=== PATIENT | female | born 1975 | race Caucasian/White ===

== ENCOUNTER 2021-07-06 11:30 | Day surgery (SDC) | payer OTHER, SELFPAY ==
--- NOTE | 2021-07-03 16:24 | PCM.HP.BLA ---
History and Physical Date of Admission: 07/06/21 Pre-Op History and Physical ? HPI: The patient is a 45 year old female presenting for discussion regarding surgical intervention for abnormal uterine bleeding, submucosal fibroid, contraceptive management. Patient would like to proceed with surgical intervention at this time. Patient states the bleeding is so irregular. She has Mirena IUD in place at this time also has a known submucosal fibroid under 3 cm. ? For pre-operative visit. She is scheduled for Hysteroscopy D&C and Myomectomy, yue ablation and Mirena IUd insertion , for abnormal uterine bleeding, submucosal fibroid, contraceptive management. on 07/06/21. Procedure discussed along with risks, benefits and complications. Other alternatives discussed for management. Consent form signed? Yes. ? ? PAST MEDICAL HISTORY PAST MEDICAL HISTORY Diagnosis Date ? Allergic rhinitis, cause unspecified ? ? Dysmetabolic syndrome X ? ? Polycystic ovaries ? ? ? PAST SURGICAL HISTORY PAST SURGICAL HISTORY Procedure Laterality Date ? LAPS SURG CHOLECYSTECTOMY W/CHOLANGIOGRAPHY ? 12/11/05 ? PAST SURGICAL HISTORY OF ? ? ? NOSE SURGERY ? ? ? CURRENT MEDICATIONS Current Outpatient Medications Medication Sig Dispense Refill ? levonorgestrel (MIRENA) 20 mcg/24 hours (7 yrs) 52 mg IUD 1 Each by INTRAUTERINE route one time only. ? ? ? Levonorgestrel-Ethinyl Estrad (AVIANE) 0.1mg - 20mcg per tablet Take 1 tablet by mouth once daily. (Patient not taking: Reported on 05/16/2021 ) 1 Package 0 ? No current facility-administered medications for this visit. ? ? ALLERGIES: Dust and No Drug Or Latex Allergy [Other] ? PERSONAL HISTORY: SOCIAL HISTORY Social History ? Tobacco Use ? Smoking status: Never Smoker ? Smokeless tobacco: Never Used Vaping Use ? Vaping Use: Never used Substance Use Topics ? Alcohol use: No ? Drug use: No ? FAMILY HISTORY: FAMILY HISTORY FAMILY HISTORY Problem Relation Age of Onset ? No Known Problems Mother ? ? Heart Father ? ? Valve disease, CABG ? Hyperlipidemia Father ? ? No Known Problems Sister ? ? Hyperlipidemia Sister ? ? No Known Problems Brother ? ? No Known Problems Maternal Grandmother ? ? Heart Maternal Grandfather ? ? Heart Paternal Grandmother ? ? Alcohol/Drug Paternal Grandfather ? ? No Known Problems Daughter ? ? No Known Problems Son ? ? ? REVIEW OF SYMPTOMS: negative except as noted above PHYSICAL EXAMINATION: ? VITALS: Blood pressure 134/84, height 5' 2 (1.575 m), weight 205 lb (93 kg), last menstrual period 11/20/2012. ? GENERAL: The patient is well nourished, well hydrated in no acute distress. , The patient is oriented to time, place, and person. NECK: full range of motion . LUNGS: Clear to auscultation bilaterally. no wheezes, rhonchi or rales HEART: Regular rate and rhythm, Normal heart sounds and No murmurs or gallops GENITALIA: Normal external genitalia, Urethral meatus normal, Bladder nontender, normal vagina and normal vaginal tone, normal cervix, normal uterus, size and consistency, normal adnexa without masses or tenderness and perineum WNL ? IMPRESSION: AUB, submucosal fibroid, contraceptive mgmt ? PLAN: Removal of Mirena IUD, hysteroscopy, D&C, Yue ablation, Mirena IUD insertion. ? Pt has been counseled on risks/benefits and alternatives of surgery including but not limited to anesthesia, bleeding, infection, uterine perforation with subsequent injury to pelvic structures including bowel, bladder, ureters and vessels. Pt wishes to proceed with surgery at this time. Reviewed with the patient that if the cavity is breached on myomectomy that we would not be able to proceed with the Yue ablation. Patient understands this. Patient has shared that she fails this that hysterectomy would be recommended. ? Pre op and post op instructions reviewed ? ? I have reviewed and updated past medical and surgical history, medications and allergies Letty Couch MD
[2021-07-06] VITALS (8 sets, daily range): BP systolic 102–136; BP diastolic 66–80; PULSE 64–81; RESP 16–18; TEMP 36.3–36.9; O2SAT 97–100
[2021-07-06] MEDS: Lactated Ringers 1,000 ML 150 ML IV (11:45)
[2021-07-06 12:11] LABS: Internal QC Validated? YES +Cl - CLEAR BKGD; Pregnancy, Urine Negative Negative
[2021-07-06 12:21] LABS: Absolute Neutrophil Count 2.7 X10^3/uL (2.0-7.7); Basophil# 0.04 X10^3/uL; Basophil% 0.7 % (0-1); Eosinophil# 0.11 X10^3/uL; Eosinophils% 1.9 % (0-5); Hematocrit 36.7 % (37-47); Hemoglobin 12.6 g/dL (12.0-15.0); Lymphocyte % 41.9 % (19-41); Mean Corp Hgb Conc 34.3 g/dL (32-36); Mean Corpuscular Hgb 32.1 pg (27.0-32.0); Mean Corpuscular Volume 93.4 fL (81-99); Mean Platelet Vol. 9.6 fl (6.2-12.0); Monocyte# 0.52 X10^3/uL; Monocyte% 9.1 % (0-10); NRBC Flagged by Analyzer 0 % (0-5); Neutrophil # 2.65 X10^3/uL (2.7-7.7); Neutrophil % 46.2 % (47-70); Platelet Count 257 K/mm3 (150-450); RBC Distribution Width SD 41.7 fl (35.1-43.9); Red Blood Count 3.93 M/mm3 (4.2-5.4); White Blood Count 5.7 K/mm3 (4.4-11.0)
--- NOTE | 2021-07-06 13:16 | PCM.OPRPT ---
Problems Associated Problem List Diagnoses (1) Abnormal uterine bleeding (AUB): (2) Fibroid uterus: Report of Operation Date of Procedure: 07/06/21 Pre-Operative Diagnosis: Fibroid uterus, aub Post-Operative Diagnosis: same Surgery/Procedure Performed:: Mirena IUD remova, Hysteroscopy, D&C, Myomectomy with symphion, Yue Ablation, Mirena IUD insertion Description of Surgical Findings:: Anterior submucosal fibroid. Removed to base with symphion. Myometrium not breached. Surgeon: Letty Mendoza Type of Anesthesia: MAC Specimen's removed: endometrial curettings, submucosal fibroid Drains: none Estimated Blood Loss (mL): 10 Fluids Replaced: 600 Description of Procedure: After informed consent was obtained patient taken to the operating room she is placed in supine position she is given anesthesia simply self insert she is prepped draped normal sterile fashion. Bladder was drained prior to the start of the procedure. At this time the weighted speculum was placed the posterior fornix of the vagina then a single-tooth tenaculum was used to grasp the anterior lip of the cervix. IUD strings seen, MIRENA IUD REMOVED. At this time the uterus was sounded to approximately 9cm the endocervical canal sounded to 3.5 cm. Next cervix was dilated in incremental fashion. Once adequate dilatation was achieved the hysteroscope was inserted using normal saline as distention medium. On hysteroscopy Submucosal fibroid noted on anterior aspect. Symphion resecting device used to remove fiboid as close to base as possible making sure not to breach the enometrium into the myometrium. After fibroid removal Both tubal ostia were visualized. tissue will be sent to pathology for evaluation. fluid deficiet 1500cc At this time the Yue device was opened. The Yue was set at 5.5 cm. The device was activated. Prior to activation the field test was performed and cavity was intact. The device was then fired and activated for 120 seconds. Once the 120 seconds was completed the device was removed intact. MIRENA iud was then placed without difficulty. and the tenaculum was removed. Good hemostasis was appreciated. Weighted speculum was removed. Vaginal sweep was performed is negative. There were no complications. Anticipated normal postoperative course for this patient. Instrument and lap count were correct ?2. Grafts/Implants Used: MIRENA IUD Procedure Start Time: 12:48 Procedure Stop Time: 13:15 Complications none Admit VTE Documentation VTE Present on Admission: Yes VTE Mechan Device Prophylaxis: SCD's VTE Pharm Prophylaxis ordered?: No Reason prophylaxis not ordered:: Procedure Not Indicated
--- NOTE | 2021-07-06 13:21 | EX.PCM.DISCH ---
Discharge Instructions Procedure D&C Diet Discharge Diet: No restrictions Activity May resume sexual activity in: 1 week Dressing / Incision Call your doctor if you observe: Fever of 101 or Higher, Inability to urinate, Using more than 1 pad per hour and Uncontrolled pain Follow Up Care Please Follow Up With: Letty Mendoza MD When: 1-2 weeks post OP if you need an appointment please call [phone] Test Results: Test results from this visit will be discussed in further detail at your follow-up appointment, if applicable. Discharge Plan Admission Attending Provider: Letty Mendoza Primary Care Provider: Care Physician,No Primary Discharge Orders/Prescriptions Prescriptions: No Action Probiotic 10 billion cell Capsule 10,000 mmu cells PO DAILY RF: 0
--- NOTE | 2021-07-06 14:00 | EMB_PTH ---
PATIENT: JOSE CABELLO [place] [facility] [id number] AGE/SX: 45/F ROOM: RE07/06/[address]: Dr. Letty Mendoza, MDDOB: 1975 BED: DIS: 07/06/2021 SPEC #: [id number] RECD: 07/06/21 15:29 STATUS: SHERI WILY #: [id number] SHARON: 07/06/21 14:[address]: Letty Mendoza DEPT: SURGICAL PATHOLOGY RECD BY: Minerva Jensen ENTERED: 07/07/21 08:22 SP TYPE: ENDOM BX/C SALLIE DR: No Primary Care Phys Tissues: Endometrium, NOS Procedures: Surgery Specimen Level IV HEADER OPERATION: Hysteroscopy, D & C, myomectomy with Symphion, Yue ablation PRE-OP DIAGNOSIS: Abnormal uterine bleeding, submucosal fibroid TISSUE SUBMITTED: Endometrial curettings and fibroid MICROSCOPIC DIAGNOSIS Endometrial curettings and fibroid: 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 Mild chronic endometritis. Fibrinopurulent material. Fragments of myometrium consistent with leiomyoma. AM:beckie 07/10/2021 MICROSCOPIC DESCRIPTION Slides are reviewed. GROSS DESCRIPTION Received in fixative is one container labeled with the patient's name and designated endometrial curettings and fibroid. The specimen consists of multiple irregular fragments of arango, indurated tissue that in aggregate measure 4.5 x 4.5 x 2 cm. The entire specimen is submitted in eight cassettes. / ELISSA:beckie 07/07/2021 TC:2 CPT: 76057
[2021-07-06] MEDS: oxyCODONE 5 MG Tablet 10 MG PO (14:47)
== END 2021-07-06 15:55 | disposition home or self-care (01) ==
LOC: SDC 11:38 → AC 11:39
PROVIDERS: Visit Provider Obstetrics & Gynecology
PROC: 0UB98ZZ Excision of Uterus, Via Natural or Artificial Opening Endoscopic (ICD-10-PCS; CPT 58558; principal; 2021-07-06 13:45)
DX: N71.1 Chronic inflammatory disease of uterus (principal); D25.9 Leiomyoma of uterus, unspecified; E28.2 Polycystic ovarian syndrome; Z30.433 Encounter for removal and reinsertion of intrauterine contraceptive device
CPT/HCPCS: 58558; 58300; 58301; 00952; 81025; 85025; 88305; J7120; J2405

== ENCOUNTER 2023-07-26 10:27 | Emergency (ER) | payer OTHER, SELFPAY ==
[2023-07-26 10:27] VITALS: BP 170/117; BP 175/123; PULSE 122; PULSE 124; RESP 18; TEMP 37.2; O2SAT 100; O2SAT 98; BMI 42.0
--- NOTE | 2023-07-26 10:49 | CT_ITS ---
STUDY: CT ABDOMEN AND PELVIS WITHOUT CONTRAST REASON FOR EXAM: Female, 47 years old. Right flank pain RADIATION DOSAGE (If Supplied By Facility): CTDIvol = ( 20.17 ) mGy, DLP = ( 1083.36 ) mGycm TECHNIQUE: Transaxial images were obtained from the dome of the diaphragm to the symphysis pubis without oral contrast, and without intravenous contrast. Sagittal and coronal images were reconstructed. Individualized dose optimization techniques were used for this CT. COMPARISON: None. FINDINGS: The visualized lung bases are unremarkable. The visualized portions of the heart are within normal limits. Normal liver. The patient is status post cholecystectomy. Normal spleen. Normal pancreas. Normal bilateral adrenal glands. Normal right kidney. Normal left kidney. Normal visualized stomach. Normal small intestine. Normal colon. The appendix is visualized and appears normal. Normal abdominal aorta. Normal inferior vena cava. Normal retroperitoneum. Normal urinary bladder. IUD is seen within the endometrium. Focal calcification in the right side of the body of the uterus. There is a small umbilical hernia containing fat. There are small benign-appearing bilateral inguinal lymph nodes. Mild degree of increased inflammatory changes seen in the right groin. Small left inguinal hernia containing fat. Normal osseous structures. CT/Abdomen/Pelvis without Cont IMPRESSION: Mild degree of inflammatory changes are seen in the right groin with right inguinal lymph nodes. IUD is seen within the uterus. Status post cholecystectomy. Electronically Signed: Ricci Travis MD at 12:09 EDT ,
--- NOTE | 2023-07-26 10:50 | EX.ED.DYSGE1 ---
HPI History of Present Illness Chief Complaint: Abd Pain Informant: patient Onset/Context/Timing Onset: Days (3 days) Narrative Narrative: Patient presents secondary to right groin pain. On the evening of the she developed right groin pain along with low-grade fevers, mild back/right flank pain, and nausea. She took her temperature but was not running a fever. When she got the next morning she felt somewhat improved but still has pain along the right groin line. She has not had further fever. She is able to eat and drink and this does not change the pain. She denies dysuria or vaginal discharge. She does have a history of polycystic ovaries. She went to urgent care this morning but because of hypertension and tachycardia she was sent to the emergency room. [facility] Medical History PCOS (polycystic ovarian syndrome) Wears glasses Alcohol use History of hiatal hernia History of diverticulitis Gastric reflux Non-smoker Hx of fracture of nose Home Medications ?Medication ?Instructions ?Recorded ?Last Taken ?Type NK 07/26/23 Unknown History Allergy/AdvReac Type Severity Reaction Status Date / Time No Known Allergies Allergy Verified 07/26/23 10:27 Surgical History Hx laparoscopic cholecystectomy Social History Smoking Status: Never smoker ROS ROS ED Constitutional Constitutional ED: Reports fever(s); Denies chills Eyes Eyes: Denies change in vision ENT ENT ED: Denies rhinorrhea or sore throat Cardiovascular Cardiovascular: Denies chest pain Respiratory/Chest Respiratory/Chest: Denies cough or dyspnea Gastrointestinal Gastrointestinal: Reports abdominal pain, nausea and vomiting; Denies diarrhea Genitourinary Genitourinary ED: Denies difficulty urinating, dysuria or hematuria Musculoskeletal Musculoskeletal: Reports back pain; Denies extremity pain Integumentary Denies Abrasions or rash Neurologic Neurologic: Denies headache(s) or weakness Allergic/Immunologic Allergic/Immunologic ED: Denies lip swelling or urticaria EXAM Physical Exam Const Vital Signs: 07/26/23 10:27 07/26/23 10:27 07/26/23 12:27 Temperature 99 F Temperature Source Temporal Pulse Rate 122 H 124 H 98 Respiratory Rate 18 18 16 Blood Pressure 170/117 H 175/123 H 139/89 H Blood Pressure Mean 134 140 105 Pulse Ox 100 98 100 Oxygen Delivery Method Room Air Room Air Room Air Positive well nourished and well developed General Appearance ED: well developed HEENT Reports moist mucous membranes Eyes EOMs intact bilaterally Chest Wall inspection of chest normal and palpation of chest normal Resp normal respiratory effort and clear to auscultation bilaterally Cardio Rate: tachycardic GI GI Narrative: Tenderness to palpation along the right groin line. No palpable hernias. Hypoactive but present bowel sounds noted throughout. Palpation: soft Extremity normal to inspection Neuro oriented x3 and no sensory deficits noted Motor Exam: strength 5/5 throughout Skin no rashes or lesions noted MDM MDM MDM Narrative Medical decision making narrative: IV line established. Patient given morphine, Toradol, Zofran, and IV fluids. Labwork obtained to evaluate for leukocytosis, anemia, and electrolyte derangement. Urinalysis obtained to evaluate for infection/hematuria. CT flank obtained to evaluate for potential kidney stone, ovarian cyst, hernia. History & Record Review Discussion w/independent historian: Patient Lab Data Attestation: I reviewed the patient's lab results. Labs: Laboratory Results - last 24 hr 07/26/23 07/26/23 10:55 11:45 WBC 6.3 RBC 4.17 L Hgb 13.0 Hct 39.5 MCV 94.7 MCH 31.2 MCHC 32.9 RDW Std Deviation 43.7 RDW Coeff of Layton 12.5 Plt Count 231 MPV 10.0 Immature Gran % (Auto) 0.300 Neut % (Auto) 69.6 Lymph % (Auto) 17.8 L Gordon % (Auto) 11.5 H Eos % (Auto) 0.2 Baso % (Auto) 0.6 Absolute Neuts (auto) 4.4 Absolute Lymphs (auto) 1.13 Nucleated RBC % 0 Sodium 134 L Potassium 4.0 Chloride 106 Carbon Dioxide 25.0 Anion Gap 3 L BUN 11 Creatinine 0.83 Estim Creat Clear Calc 94.84 Est GFR (MDRD) Af Amer 95 Est GFR (MDRD) Non-Af 78 BUN/Creatinine Ratio 13.3 Glucose 89 Calcium 8.6 Serum , Qual NEGATIVE Urine Color Yellow Urine Clarity Clear Urine pH 8.0 Ur Specific [place] 1.010 Urine Protein Negative Urine Glucose (UA) Normal Urine Ketones Negative Urine Occult Blood Negative Urine Nitrite Negative Urine Bilirubin Negative Urine Urobilinogen Normal Ur Leukocyte Esterase 25 H Urine RBC 0-5 SEEN Urine WBC 0-5 SEEN Ur Squamous Epith Cells 0-5 SEEN Urine Bacteria 1+ Urine Mucus RARE Radiography Diagnostic Testing: Clinical Impression(s) from Imaging Studies Abdomen/Pelvis CT 07/26/23 10:49 IMPRESSION: Mild degree of inflammatory changes are seen in the right groin with right inguinal lymph nodes. IUD is seen within the uterus. Status post cholecystectomy. Electronically Signed: Ricci Travis MD at 12:09 EDT , Treatment and Re-Evaluation :: CBC was normal white count 6.3 with a hemoglobin of 13.0. Normal differential. Chemistry studies unremarkable. test negative. Urinalysis reveals 1+ bacteria with 0-5 epithelial cells, 0-5 white cells, no nitrites. CT scan of the flank reveals mild inflammatory changes at the right groin along the inguinal lymph nodes. IUD is seen in the uterus. No other acute abnormalities appreciated. On repeat evaluation patient resting more comfortably. She is developing a mild headache and will be given some Tylenol. Vital signs are improved with a blood pressure of 139/89 and a heart rate of 98. Test results are discussed with her. She will continue to monitor her symptoms at home and continue supportive care. Return instructions provided. Discharge Plan Triage Chief Complaint: Abd Pain ED Provider: Radha Park Dx/Rx/DC Orders Clinical Impression: Viral syndrome, Lymphadenopathy Instructions: ED Abdominal Pain Unkn Cause Fem, ED Lymphangitis Prescriptions: No Action NK Primary Care Provider: Care Physician,No Primary Referrals: Ludmila Linton MD [Med Staff - Beauty Culturist] - As Needed Care Physician,No Primary [Primary Care Provider] - Print Language: Bruneian Disposition Disposition: Home, Self Care
[2023-07-26] MEDS: 0.9% Normal Saline (1000mL) 1,000 ML 150 ML IV (10:54)
[2023-07-26] MEDS: Ketorolac 30 MG/ML Syringe IV (10:55)
[2023-07-26] MEDS: Ondansetron 4 MG/2 ML Vial IV (10:55)
[2023-07-26 11:05] LABS: Absolute Lymphocyte Count 1.13 X10^3/uL (0.83-4.51); Absolute Neutrophil Count 4.4 X10^3/uL (2.0-7.7); Basophil# 0.04 X10^3/uL; Basophil% 0.6 % (0-1); Eosinophil# 0.01 X10^3/uL; Eosinophils% 0.2 % (0-5); Hematocrit 39.5 % (37-47); Lymphocyte # 1.13 X10^3/ul (0.83-4.51); Lymphocyte % 17.8 % (19-41); Mean Corp Hgb Conc 32.9 g/dL (32-36); Mean Corpuscular Hgb 31.2 pg (27.0-32.0); Mean Corpuscular Volume 94.7 fL (81-99); Monocyte# 0.73 X10^3/uL; Monocyte% 11.5 % (0-10); NRBC Flagged by Analyzer 0 % (0-5); Neutrophil # 4.41 X10^3/uL (2.7-7.7); Neutrophil % 69.6 % (47-70); Platelet Count 231 K/mm3 (150-450); RBC Distribution Width CV 12.5 % (11.6-14.6); RBC Distribution Width SD 43.7 fl (35.1-43.9); Red Blood Count 4.17 M/mm3 (4.2-5.4); White Blood Count 6.3 K/mm3 (4.4-11.0)
[2023-07-26 11:21] LABS: Internal QC Validated? YES +Cl - CLEAR BKGD; Pregnancy, Serum, hCG Quali. NEGATIVE Negative; Record Kit Lot#, Serum Preg. HCG0000735774
[2023-07-26 11:28] LABS: Anion Gap 3 (5-15); BUN 11 mg/dL (7-18); BUN/Creat Ratio 13.3 RATIO (10-20); Calcium,Total 8.6 mg/dL (8.5-10.1); Chloride 106 mmol/L (98-107); Creatinine, Serum 0.83 mg/dL (0.55-1.02); EST Glomerular Filtration Rate 78 mL/min (>60); Est Glom Filt Rate - Afr Amer 95 mL/min (>60); Estimated Creatinine Clearance 94.84 ml/min; Glucose 89 mg/dL (74-106); Sodium Level 134 mmol/L (136-145)
[2023-07-26 11:54] LABS: Color, Urine Yellow (Yellow); Glucose, Dipstick Normal (Normal); Ketone-Dipstick Negative (Negative); Leukocyte Esterase-Dipstick 25 /ul (Negative); Nitrite-Dipstick Negative (Negative); Occult Blood-Urine Negative /ul (Negative); Protein-Dipstick Negative (Negative); Urine Bilirubin Dipstick Negative (Negative); Urine Clarity Clear (Clear); Urine Urobilinogen Normal (Normal)
[2023-07-26 12:21] LABS: Bacteria 1+ /hpf (None Seen)
[2023-07-26 12:22] LABS: Mucous, Urine RARE /hpf (<or=2+); Red Blood Cells-Urine 0-5 SEEN /hpf (0-5); Squamous Epithelial Cells - UA 0-5 SEEN /hpf (5-10); White Blood Cells 0-5 SEEN /hpf (0-5)
[2023-07-26 12:27] VITALS: BP 139/89; PULSE 98; RESP 16; O2SAT 100
[2023-07-26 13:46] VITALS: BP 139/81; PULSE 79; RESP 14; TEMP 36.6; O2SAT 100
[2023-07-26] MEDS: Acetaminophen 500 MG Tablet 1000 MG PO (13:48)
== END 2023-07-26 13:54 | disposition home or self-care (01) ==
PROVIDERS: Emergency Provider Emergency Medicine; Visit Provider Emergency Medicine
DX: B34.9 Viral infection, unspecified (principal); R59.9 Enlarged lymph nodes, unspecified
CPT/HCPCS: 74176; 80048; 81001; 84703; 85025; 96361; 96374; 96375; 96376; 99283; J7030; A4216; J2405

== ENCOUNTER → 2023-09-06 | Outpatient (CLI) | payer OTHER, SELFPAY ==
--- NOTE | 2023-09-06 08:05 | ECHOCS_ITS ---
Reason For Study: SOB Procedure This was a 2D Doppler, Color Flow transthoracic echocardiogram. The study was technically difficult. Contrast injection was performed. Exam performed in department. Left Ventricle Normal LV size. The estimated ejection fraction is 55 %. No evidence for diastolic dysfunction. No regional wall motion abnormalities noted. Right Ventricle Normal RV size. Normal systolic function. Atria The left and right atria are normal. No doppler evidence for ASD. Mitral Valve There is no mitral valve stenosis. No mitral valve insufficiency. Tricuspid Valve There is no tricuspid stenosis. Unable to estimate RV systolic pressure due to inadequate jet, pulmonary artery pressure probably normal. Aortic Valve Trisinus/trileaflet aortic valve. There is no aortic stenosis. No aortic valve insufficiency. Pulmonic Valve There is no pulmonic valvular stenosis. No pulmonic valve insufficiency. Great Vessels Normal aortic root. Pericardium/Pleural No pericardial effusion. Medication 22 gauge I.V. with prn adaptor inserted into right arm. Diluted definity 1.5ml given slow IV push to enhance endocardial definition. MMode/2D Measurements & Calculations LVIDd: 4.3 cm IVSd: 0.96 cm Ao root diam: 2.8 cm LVIDs: 3.4 cm LVPWd: 0.93 cm FS: 20.5 % LAV(MOD-bp): 25.1 ml LVAd ap4: 27.3 cm2 SV(MOD-sp4): 40.5 ml LAV(MOD-bp) Indexed: 12.7 ml/m2 LVLd ap4: 8.0 cm LAV(MOD-sp2): 23.6 ml EDV(MOD-sp4): 76.4 ml LAV(MOD-sp4): 26.8 ml EDV(sp4-el): 78.9 ml LVAs ap4: 16.6 cm2 LVLs ap4: 6.3 cm ESV(MOD-sp4): 35.9 ml ESV(sp4-el): 37.0 ml EF(MOD-sp4): 53.0 % EF(sp4-el): 53.2 % SV(sp4-el): 42.0 ml LA A4 area: 12.2 cm2 LA dimension(2D): 3.6 cm RA A4 area: 13.0 cm2 TAPSE: 1.9 cm Time Measurements MV dec time: 0.16 sec Doppler Measurements & Calculations MV E max benigno: 72.2 cm/sec Lat Peak E' Benigno: 15.5 cm/sec Med Peak E' Benigno: 13.9 cm/sec MV A max benigno: 56.2 cm/sec E/E' lat: 4.7 E/E' med: 5.2 MV E/A: 1.3 MV V2 max: 70.2 cm/sec MV dec slope: 441.8 cm/sec2 Ao V2 max: 114.5 cm/sec MV max P.0 mmHg Ao max P.3 mmHg MV V2 mean: 41.5 cm/sec Ao V2 mean: 81.7 cm/sec MV mean P.81 mmHg Ao mean P.0 mmHg MV V2 VTI: 17.7 cm Ao V2 VTI: 24.0 cm AV (velocity ratio): 0.73 LV V1 max: 84.8 cm/sec PA V2 max: 97.5 cm/sec LV V1 max P.9 mmHg PA V2 mean: 72.4 cm/sec LV V1 mean P.7 mmHg LV V1 mean: 60.4 cm/sec LV V1 VTI: 17.4 cm ECHO/Echo Complete W/ Contrast Interpretation Summary The estimated ejection fraction is 55 %. No evidence for diastolic dysfunction. Ordering Physician: Rajni Snow Referring Physician: Rajni Snow Performed By: Ginger Montaño RCS
== END | disposition home or self-care (01) ==
PROVIDERS: PCP Internal Medicine; Referring Provider Internal Medicine; Visit Provider Internal Medicine
DX: R00.2 Palpitations (principal)
CPT/HCPCS: 93225; 93226; 93306; Q9957; A4216; C8929

== ENCOUNTER 2024-05-15 05:22 | Day surgery (SDC) | payer OTHER, SELFPAY ==
--- NOTE | 2024-05-01 10:22 | PAT.ANESEVAL ---
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 When Was Last Pacemaker Check QUESTION #4 FULL TEXT: You/Your Family Experience fever (hyperthermia) with Anesthesia Last Oral Intake Last Oral intake: Last Oral Intake NPO since Meds taken in AM with sips of water? Meds patient instructed to take am of surgery PONV PONV - wide piece goods inspector: PONV - wide piece goods inspector Female Yes 05/01/24 09:28 HX of Motion Sickness Yes 05/01/24 09:28 HX of N/V After Surgery No 05/01/24 09:28 Non-Smoker Yes 05/01/24 09:28 Duration of Surgery greater Yes 05/01/24 09:28 than 60 minutes Number of Risk Factors 4 05/01/24 09:28 PONV Score Severe Risk 05/01/24 09:28 Height & Weight Height & Weight: Anesthesia: Height & Weight Height 5 ft 2 in 07/26/23 10:27 Respiratory Assessment Respiratory Assessment - wide piece goods inspector: Respiratory Tract Infection Hx - wide piece goods inspector Hx Respiratory Tract Infection No 05/01/24 09:28 STOP Sleep Apnea STOP Sleep Apnea - wide piece goods inspector: STOP Sleep Apnea - wide piece goods inspector Hx Hypertension Yes: CONTROLLED WITH MEDS 05/01/24 09:28 Hx Sleep Apnea No 05/01/24 09:28 CPAP BIPAP Do you snore loudly (louder Yes 05/01/24 09:28 than talking or can be heard Do you often feel tired/ No 05/01/24 09:28 fatigued/ sleepy during daytime? Has anyone observed you stop Yes 05/01/24 09:28 breathing during sleep? STOP Results Positive 05/01/24 09:28 QUESTION #5 FULL TEXT : Do you snore loudly (louder than talking or can be heard through closed doors)? 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 Specify any problems Hx of Preganancy in last 3 No 05/01/24 09:28 Months Nurse Filling Out Transfusion DSCHRIBER 05/01/24 09:28 & Questions: Date: 05/01/24 05/01/24 09:28 Time: 09:30 05/01/24 09:28 Patient unable to answer at this time (ie. confused, unrespo /Reproduction History /Reproductive History - wide piece goods inspector: /Reproductive Hx- wide piece goods inspector Hx Now No 05/01/24 09:28 Gestational Age (in weeks): EDC: Hx Hx Para Hx Section SAB No 05/01/24 09:28 PFSH Medical History Depression Anxiety Restless legs Heartburn Shortness of breath on exertion Hypertension History of Holter monitoring History of echocardiogram Hx of reduction of nasal fracture PCOS (polycystic ovarian syndrome) Wears glasses Alcohol use History of hiatal hernia History of diverticulitis Non-smoker Home Medications ?Medication ?Instructions ?Recorded ?Last Taken ?Type bupropion HCl 150 mg 24 hr tablet, 150 mg PO QHS 05/01/24 Unknown History extended release escitalopram oxalate 10 mg tablet 10 mg PO QHS 05/01/24 Unknown History hydrochlorothiazide 25 mg tablet 25 mg PO DAILY 05/01/24 Unknown History lisinopril 20 mg tablet 20 mg PO BID 05/01/24 Unknown History Allergy/AdvReac Type Severity Reaction Status Date / Time No Known Allergies Allergy Verified 05/01/24 09:21 Surgical History (Updated 05/01/24 @ 09:35 by Lina Baker) History of hysteroscopy Hx of colonoscopy Hx laparoscopic cholecystectomy Social History Smoking Status: Never smoker Audit: Pertinent Findings Pertinent Findings Echo (EF%) pertinent findings: 09/06/2023. EF 55% Additional pertinent findings: Holter monitor 09/06/2023 48-hour Holter monitor in normal sinus rhythm with rare PVCs and PACs Recommendation Anesthesia Recommendation Anesthesia recommendation: OPTIMIZED for anesthesia
--- NOTE | 2024-05-04 10:47 | PCM.HP.BLA ---
History and Physical Date of Admission: 05/15/24 HPI: The patient is a 48 year old female presenting for pre-operative visit. She is scheduled for total laparoscopic hysterectomy with bilateral salpingectomy and cystoscopy, for dysmenorrhea, intramural and submucosal fibroids, and adenomyosis on 05/15/24. Procedure discussed along with risks, benefits and complications. Other alternatives discussed for management. Consent form signed? Yes. ? ? PAST MEDICAL HISTORY PAST MEDICAL HISTORYDiagnosisDate?Allergic rhinitis, cause unspecified??Depression??with anxiety, Pt reported?Dysmetabolic syndrome X??Essential hypertension??Pt reproted?GERD (gastroesophageal reflux disease)??History of diverticulitis??Polycystic ovaries? ? ? PAST SURGICAL HISTORY PAST SURGICAL HISTORYProcedureLateralityDate?COLONOSCOPY SCREENING?12/2023?HYSTEROSCOPY?07/06/2021?D&C, Myomectomy with Symphion, Yue Ablation?HYSTEROSCOPY ENDOMETRIAL ABLATION?07/06/2021?yue?INSERTION OF IUD?07/06/2021?Mirena removal and insertion?LAPS SURG CHOLECYSTECTOMY W/CHOLANGIOGRAPHY?12/11/2005?PAST SURGICAL HISTORY OF???NOSE SURGERY ? ? ? CURRENT MEDICATIONS Current Outpatient MedicationsMedicationSigDispenseRefill?buPROPion XL (WELLBUTRIN XL) 150 mg 24 hr tabletTake 1 tablet by mouth every afternoon.???escitalopram oxalate (LEXAPRO) 10 mg tabletTake 10 mg by mouth daily at bedtime.???hydroCHLOROthiazide 25 mg tabletTake 25 mg by mouth every morning.???lisinopril (ZESTRIL) 20 mg tabletTake 1 tablet by mouth every 12 hours.???rOPINIRole (REQUIP) 0.25 mg tabletTake 0.25 mg by mouth as needed.???No current facility-administered medications for this visit. ? ? ALLERGIES: Dust ? PERSONAL HISTORY: SOCIAL HISTORY Social History?Tobacco Use?Smoking status:Never?Smokeless tobacco:NeverVaping Use?Vaping status:Never UsedSubstance Use Topics?Alcohol use:Yes??Comment: social?Drug use:No ? FAMILY HISTORY: FAMILY HISTORY FAMILY HISTORY ProblemRelationAge of Onset?No Known ProblemsMother??HeartFather?? Valve disease, CABG?HyperlipidemiaFather??No Known ProblemsSister??HyperlipidemiaSister??No Known ProblemsBrother??No Known ProblemsMaternal Grandmother??HeartMaternal Grandfather??HeartPaternal Grandmother??Alcohol/DrugPaternal Grandfather??No Known ProblemsDaughter??No Known ProblemsSon? ? ? REVIEW OF SYMPTOMS: GENERAL: denies fevers or chills ENDOCRINOLOGY: has not been on steroids Cardiology : denies palpitations or chest pain Respiratory: denies SOB or cough Hematology: denies history of prolonged bleeding or easy bruising or VTE Allergy: Denies history of personal or family history of allergy to anesthesia ? PHYSICAL EXAMINATION: ? VITALS: Blood pressure 116/82, pulse 84, resp. rate 16, height 160 cm (5' 3), weight 98.9 kg (218 lb), last menstrual period 11/20/2012, SpO2 98%. ? GENERAL: The patient is well nourished, well hydrated in no acute distress. , The patient is oriented to time, place, and person. NECK: Supple. No lynphadenopathy, normal thyroid, no thyromegaly. LUNGS: Clear to auscultation bilaterally. no wheezes, rhonchi or rales HEART: Regular rate and rhythm, Normal heart sounds, and No murmurs or gallops ? PELVIC US 03/05/2024: Impression 3D rendering of the uterus demonstrates a malpositioned IUD with the device positioned incorrectly, too low in the cavity seen within the cervix. The uterus is axial and measures 74 mm x 38 mm x 58 mm. The myometrium is heterogeneous, echogenic suggestive of adenomyosis. In addition, five fibroids are observed and are described below. The endometrial thickness is 4.4 mm and contains ?anechoic fluid. 1. Posterior intramural fibroid measures 10 mm x 8 mm x 11 mm. 2. Left lateral posterior wall intramural fibroid measures 9 mm x 6 mm x 11 mm. 3. Left lateral posterior wall intramural fibroid measures 9 mm x 8 mm x 9 mm. 4. Left lateral anterior wall intramural fibroid measures 10 mm x 9 mm x 9 mm. 5. Posterior fundal intramural fibroid measures 11 mm x 8 mm x 12 mm. The right ovary measures 28 mm x 20 mm x 15 mm. The left ovary measures 27 mm x 26 mm x 25 mm. There is no free fluid visualized. Technique: Three dimensional imaging was created on a dedicated stand-alone 3D workstation with images created and archived, and supervised and reviewed by the interpreting physician utilizing images from a US Scan performed on 03/05/24. Recommendations Recommend removal of malpositioned IUD. Fibroid uterus. Clinical correlation is recommended. Ultrasound findings suggestive for adenomyosis. Clinical correlation is recommended. ? IMPRESSION: Dysmenorrhea, adenomyosis, submucosal and intramural uterine fibroids. ? PLAN: The risks/benefits/alternatives and personal involved for the planned total laparoscopic hysterectomy with bilateral salpingectomy and cystoscopy were reviewed with the patient. Her questions were answered to her satisfaction and she desires to proceed. Consent was signed. I reviewed with her postop instructions and expectations. ? ? I have reviewed and updated past medical and surgical history, medications and allergies Assessment & Plan Assessment/Plan (1) Fibroid uterus: (2) Dysmenorrhea: (3) Adenomyosis:
[2024-05-15] VITALS (13 sets, daily range): BP systolic 90–124; BP diastolic 60–85; PULSE 61–84; RESP 14–16; TEMP 36.1–36.9; O2SAT 92–100; BMI 40.3
--- NOTE | 2024-05-15 | HYST_PTH ---
PATIENT: JOSE CABELLO LOC: [facility] [place] U#:[id number] AGE/SX: 48/F ROOM: RE05/15/[address]: Dr. Dari Powers MD : [id number] BED: DIS: 05/15/2024 SPEC #: [id number] RECD: 05/15/24 12:57 STATUS: SHERI RELeatha #: [id number] SHARON: 05/15/24 00:[address]: Dari Powers DEPT: SURGICAL PATHOLOGY RECD BY: Manuel Dahl ENTERED: 05/15/24 12:57 SP TYPE: HYSTERECT OTHR DR: Dr. Rajni Snow, DO Tissues: Uterus, NOS Procedures: Surgery Specimen Level V HEADER OPERATION: Hysterectomy, TLH, bilateral salpingectomy, cystoscopy PRE-OP DIAGNOSIS: Fibroid uterus, dysmenorrhea, adenomyosis TISSUE SUBMITTED: A- Cervix, uterus, bilateral fallopian tubes MICROSCOPIC DIAGNOSIS Cervix, uterus, bilateral fallopian tubes, hysterectomy bilateral salpingectomy:Cervix: Chronic cervicitis and squamous metaplasia Endometrium: ErodedMyometrium: LeiomyomataBilateral fallopian tubes: Bilateral completely transected fallopian tubes with paratubal and Sajan cysts.Kolton Kelly MD, 05/25/2024 MICROSCOPIC DESCRIPTION Slides are reviewed. GROSS DESCRIPTION A. Received in fixative is one container labeled with the patient's name and designated Cervix, uterus, bilateral fallopian tubes. The specimen consists of one uterus weighing 99gm. The uterus measures 9 x 6 x 4cm and has a leiomyoma protruding from the anterior- superior surface. The leiomyoma measures 2.8 x 2 x 1.5cm. The cervix measures 3.2 x 3. The cervical os measures 1.3cm in diameter. There are two detached fallopian tubes. One fallopian tube measures 4 x 1 x 0.7cm. The second fallopian tube measures 4.5 x 1.1 x 0.8cm. Upon opening the uterus, other smaller leiomyomas are identified measuring maximally 1.9 x 2.6 x 2 cm and others much smaller. There are no endometrial polyps identified. Serially sectioning uterus reveals the uterine wall to measure 1.6cm. Of this, 0.2cm appears to be endometrium and the rest is myometrium. Pole Incisor Operator sections are submitted as follows: A1- anterior cervix A2- posterior cervix A3- anterior uterine wall A4- anterior uterine wall, leiomyoma A5- anterior uterine wall A6- large protruding anterior-superior wall leiomyoma A7- large protruding leiomyoma A8- posterior uterine wall A9- posterior uterine wall leiomyoma A10- posterior uterine wall A11- one fallopian tube A12- second fallopian tube JS.mr 05/15/2024 CPT:59812, TC:1
[2024-05-15 05:53] LABS: Internal QC Validated? YES +Cl - CLEAR BKGD; Pregnancy, Urine Negative Negative
[2024-05-15] MEDS: Enoxaparin 40 MG/0.4 ML Syringe SC (06:21)
[2024-05-15] MEDS: Acetaminophen 500 MG Tablet 1000 MG PO (06:22)
[2024-05-15] MEDS: Scopolamine 1mg/72hr Patch 1 PATCH TD (06:22)
[2024-05-15] MEDS: Phenazopyridine 95 MG Tablet 190 MG PO (06:22)
[2024-05-15] MEDS: Celecoxib 200 MG Capsule 400 MG PO (06:23)
[2024-05-15] MEDS: Gabapentin 600 MG Tablet PO (06:23)
[2024-05-15] MEDS: 0.9% Normal Saline (1000mL) 1,000 ML 15 ML IV (06:25)
[2024-05-15 06:34] LABS: Bedside Glucose 81 mg/dL (74-106)
[2024-05-15 06:45] LABS: Anion Gap 10 (5-15); BUN 10 mg/dL (4-19); BUN/Creat Ratio 14.5 RATIO (10-20); Calcium,Total 8.4 mg/dL (7.6-11.0); Carbon Dioxide 23.8 mmol/L (21.0-32.0); Chloride 102 mmol/L (98-108); Creatinine, Serum 0.69 mg/dL (0.70-1.20); EST Glomerular Filtration Rate 107 (>60); Estimated Creatinine Clearance 110.28 ml/min (50-250); Glucose 78 mg/dL (70-99); Magnesium 2.2 mg/dL (1.5-2.2); Potassium 3.4 mmol/L (3.3-5.1); Sodium Level 135 mmol/L (133-145)
--- NOTE | 2024-05-15 06:51 | PCM.PRE.AN2 ---
ASA Classification* ASA Classification ASA Classification: 3 Assessment & Plan Anesthesia* Anesthesia Assessment Anesthesia Assessment: Discussed sedation and/or anesthesia options, risks, benefits, and alternatives with patient/parents/legal guardian/POA. Questions invited. The patient/parents/legal guardian/POA seems to understand and agrees to proceed with anesthesia plan. Reviewed the physical assessment, medical history, allergy history and patient home medications list prior to surgery/procedure/anesthetic and documented any changes. Performed airway and anesthesia risk assessments. Anesthesia Type Anesthesia Type: MAC History Source History Obtained from:: Patient, Chart and Significant Other (spouse) Anesthesia Focused Assessment* Temperature: 98.4 F Pulse Rate: 80 Blood Pressure: 124/85 Respiratory Rate: 16 Pulse Ox: 96 Airway Assessment Mouth opens: >3 cm Mallampati Score: II Teeth Condition: Caps/Crowns Neck Range of motion (ROM): Full ROM Focused Labs Anesthesia Preop lab: CBC WBC 6.3 K/mm3 (4.4-11.0) 07/26/23 10:55 07/26/23 RBC 4.17 M/mm3 (4.2-5.4) L 07/26/23 10:55 07/26/23 Hgb 13.0 g/dL (12.0-15.0) 07/26/23 10:55 07/26/23 Hct 39.5 % (37-47) 07/26/23 10:55 07/26/23 Plt Count 231 K/mm3 (150-450) 07/26/23 10:55 07/26/23 CHEMISTRY Potassium 3.4 mmol/L (3.3-5.1) 05/15/24 06:10 05/15/24 Sodium 135 mmol/L (133-145) 05/15/24 06:10 05/15/24 Magnesium 2.2 mg/dL (1.5-2.2) 05/15/24 06:10 05/15/24 BUN 10 mg/dL (4-19) 05/15/24 06:10 05/15/24 Creatinine 0.69 mg/dL (0.70-1.20) L 05/15/24 06:10 05/15/24 Glucose 78 mg/dL (70-99) 05/15/24 06:10 05/15/24 POC Glucose 81 mg/dL (74-106) 05/15/24 06:17 05/15/24 COAG Urine Test Negative Negative 05/15/24 05:30 05/15/24 Pre-Assessment Diagnosis/Proposed Procedure Planned Operative Procedure(s): ERAS HYSTERECTOMY TLH BILAT BSO,CYSTO Anesthesia History 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 When Was Last Pacemaker Check QUESTION #4 FULL TEXT: You/Your Family Experience fever (hyperthermia) with Anesthesia Last Oral Intake Last Oral intake: Last Oral Intake NPO since 03:30 05/15/24 06:37 Meds taken in AM with sips of Yes 05/15/24 06:37 water? Meds patient instructed to take am of surgery PONV PONV - commercial hvac technician: PONV - commercial hvac technician Female Yes 05/01/24 09:28 HX of Motion Sickness Yes 05/01/24 09:28 HX of N/V After Surgery No 05/01/24 09:28 Non-Smoker Yes 05/01/24 09:28 Duration of Surgery greater Yes 05/01/24 09:28 than 60 minutes Number of Risk Factors 4 05/01/24 09:28 PONV Score Severe Risk 05/01/24 09:28 Height & Weight Height & Weight: Anesthesia: Height & Weight Height 5 ft 2 in 05/15/24 06:37 Weight: 100 kg 05/15/24 06:37 Body Mass Index (BMI) 40.3 05/15/24 06:37 Respiratory Assessment Respiratory Assessment - commercial hvac technician: Respiratory Tract Infection Hx - commercial hvac technician Hx Respiratory Tract Infection No 05/01/24 09:28 STOP Sleep Apnea STOP Sleep Apnea - commercial hvac technician: STOP Sleep Apnea - commercial hvac technician Hx Hypertension Yes: CONTROLLED WITH MEDS 05/01/24 09:28 Hx Sleep Apnea No 05/01/24 09:28 CPAP BIPAP Do you snore loudly (louder Yes 05/01/24 09:28 than talking or can be heard Do you often feel tired/ No 05/01/24 09:28 fatigued/ sleepy during daytime? Has anyone observed you stop Yes 05/01/24 09:28 breathing during sleep? STOP Results Positive 05/01/24 09:28 QUESTION #5 FULL TEXT : Do you snore loudly (louder than talking or can be heard through closed doors)? Tobacco Use History Tobacco Use History - commercial hvac technician: Tobacco Use History - commercial hvac technician Tobacco Use Smoking Status Never smoker 05/01/24 09:28 Hx Tobacco Use No 05/01/24 09:28 Years Smoking Packs Smoked per Day Smoking Cessation Date was within the last 15 years Hx Smoking Cessation Date Hx Smoking Cessation Counseling Hematologic Medial History Hematologic Hx - commercial hvac technician: Hematologic Medical Hx - sole rounder Hx of Blood Transfusion No 05/01/24 09:28 Hx of Transfusion in last 3 No 05/01/24 09:28 Months Date of Last Transfusion (if within last 3 months) Ever experience any problems No 05/01/24 09:28 with transfusion(s)? Specify any problems Hx of Preganancy in last 3 No 05/01/24 09:28 Months Nurse Filling Out Transfusion DSCHRIBER 05/01/24 09:28 & Questions: Date: 05/01/24 05/01/24 09:28 Time: 09:30 05/01/24 09:28 Patient unable to answer at this time (ie. confused, unrespo /Reproduction History /Reproductive History - commercial hvac technician: /Reproductive Hx- commercial hvac technician Hx Now No 05/01/24 09:28 Gestational Age (in weeks): EDC: Hx Hx Para Hx Section SAB No 05/01/24 09:28 Active Medications Active Medications: Current Medications Generic Name Dose Route Start Last Admin Trade Name Freq PRN Reason Stop Dose Admin Acetaminophen 1,000 mg 05/15/24 07:30 05/15/24 06:22 Acetaminophen 500 Mg Tablet PO 05/15/24 07:31 1,000 mg PREOP ONE Administration Celecoxib 400 mg 05/15/24 07:30 05/15/24 06:23 Celecoxib 200 Mg Capsule PO 05/15/24 07:31 400 mg X1 ONE Administration Enoxaparin Sodium 40 mg 05/15/24 07:30 05/15/24 06:21 Enoxaparin 40 Mg/0.4 Ml Syringe SC 05/15/24 07:31 40 mg X1 ONE Administration Gabapentin 600 mg 05/15/24 07:30 05/15/24 06:23 Gabapentin 600 Mg Tablet PO 05/15/24 07:31 600 mg PREOP ONE Administration Lactated Ringer's 1,000 mls @ 40 mls/hr 05/15/24 07:30 IV .Q25H ROBBIE Cefazolin Sodium 2 gm/ N/A 20 mls @ 400 mls/hr 05/15/24 07:30 IV 05/15/24 07:32 PREOP ONE Lactated Ringer's 1,000 mls @ 70 mls/hr 05/15/24 07:30 IV .[id number] ROBBIE Sodium Chloride 1,000 mls @ 15 mls/hr 05/15/24 06:25 05/15/24 06:25 IV 15 mls/hr .Q48H ROBBIE Administration Magnesium Sulfate 1 gm/ 102 mls @ 408 mls/hr 05/15/24 07:00 Dextrose IV 05/15/24 07:14 X1 ONE Insulin Human Lispro 0 unit 05/15/24 07:30 Insulin Lispro 100 Unit/Ml Insuln.Pen SC Q4H PRN PRN BG >/= 180, SEE PROTOCOL Protocol Ondansetron HCl 4 mg 05/15/24 07:30 Ondansetron 4 Mg/2 Ml Vial IV 05/15/24 07:31 X1 ONE Phenazopyridine HCl 190 mg 05/15/24 07:30 05/15/24 06:22 Phenazopyridine 95 Mg Tablet PO 05/15/24 07:31 190 mg X1 ONE Administration Scopolamine HBr 1 patch 05/15/24 07:30 05/15/24 06:22 Scopolamine 1mg/72hr Patch TD 05/15/24 07:31 1 patch X1 ONE Administration PFSH Medical History Depression Anxiety Restless legs Heartburn Shortness of breath on exertion Hypertension History of Holter monitoring History of echocardiogram Hx of reduction of nasal fracture PCOS (polycystic ovarian syndrome) Wears glasses Alcohol use History of hiatal hernia History of diverticulitis Non-smoker Home Medications ?Medication ?Instructions ?Recorded ?Last Taken ?Type bupropion HCl 150 mg 24 hr tablet, 150 mg PO QHS 05/01/24 05/14/24 History extended release escitalopram oxalate 10 mg tablet 10 mg PO QHS 05/01/24 05/14/24 History hydrochlorothiazide 25 mg tablet 25 mg PO DAILY 05/01/24 05/14/24 History lisinopril 20 mg tablet 20 mg PO BID 05/01/24 05/14/24 History Allergy/AdvReac Type Severity Reaction Status Date / Time No Known Allergies Allergy Verified 05/01/24 09:21 Surgical History (Updated 05/01/24 @ 09:35 by Lina Baker) History of hysteroscopy Hx of colonoscopy Hx laparoscopic cholecystectomy Social History Smoking Status: Never smoker Review of Systems (Anesthesia) ROS Narrative System reviewed and no additional complaints, except as documented.
[2024-05-15] MEDS: Magnesium 1 GM over 15 mins IV (06:59)
[2024-05-15] MEDS: Cefazolin 2 GM in Syringe 10 ML IV (07:41)
--- NOTE | 2024-05-15 07:58 | PCM.DC ---
Discharge Instructions DC O2, CPAP, BIPAP needs Home O2 Discharge instructions: No Dressing / Incision Discharge Activity: May Drive (when no longer taking pain medication) May shower in (days): 1 May resume sexual activity in: 6-8 weeks and - (Nothing in your vagina for 6 weeks. No vaginal or anal intercourse for 6-8 weeks) Dressing / Incision Cleanse incision/area with: Soap & Water and - (Your incisions have skin glue, it can get wet, leave the glue on until it falls off. ) Follow Up Care Please Follow Up With: Dari Powers MD When: With my office in 1-2 and 6 weeks or as needed. [phone] send a [employer] message for non urgent inquiries Test Results: Test results from this visit will be discussed in further detail at your follow-up appointment, if applicable. Discharge Plan Admission Primary Reason for Your Visit: Lapaoroscopic hysterectomy Attending Provider: Dari Powers Primary Care Provider: Rajni Snow Instructions Print Language: Macanese Discharge Orders/Prescriptions Prescriptions: New ibuprofen 600 mg tablet 600 mg PO Q6H PRN (Reason: Pain) 30 Days Qty: 60 1RF oxycodone 5 mg tablet 5 mg PO Q6H PRN PRN (Reason: severe pain) 7 Days Qty: 12 0RF acetaminophen [Acetaminophen Extra Strength] 500 mg tablet 1,000 mg PO Q6H PRN (Reason: fever or pain) 30 Days Qty: 60 1RF Continued bupropion HCl 150 mg tablet extended release 24 hr 150 mg PO QHS escitalopram oxalate 10 mg tablet 10 mg PO QHS hydrochlorothiazide 25 mg tablet 25 mg PO DAILY lisinopril 20 mg tablet 20 mg PO BID Referrals / Follow Up: Rajni Snow DO [Primary Care Provider] - Disposition Disposition (needs filled in before D/C Order can be placed): Home, Self Care
[2024-05-15] MEDS: Ondansetron 4 MG/2 ML Vial IV (08:59)
[2024-05-15] MEDS: Bupivacaine Mpf 0.5% 30 ML VIAL (09:15)
--- NOTE | 2024-05-15 09:17 | OP.PCM_ITS ---
Problems Associated Problem List Diagnoses (1) Adenomyosis: (2) Dysmenorrhea: (3) Fibroid uterus: (4) Abnormal uterine bleeding (AUB): Operative Report (Standard) Operative Information Date of Procedure: 05/15/24 Pre-Operative Diagnosis: adenomyosis, dysmenorrhea, AUB, uterine fibroids Post-Operative Diagnosis: same Surgery/Procedure Performed: TLH, bilateral salpingectomy, cystoscopy quiller runner: Yes Steward/Stewardess [employer] Car: Letty Mendoza Tasks completed by assistant accounting manager: Opening, Closing, Altering tissue, Hemostasis: Clamp, Hemostasis: Tie, Trocar and Retracting Additional assistant inventory manager?: Yes Additional Rotary Saw Operator #2: Ira Maravilla ms3 Tasks completed by assistant inventory manager #2: Closing and Retracting Additional assistant inventory manager?: No Type of Anesthesia: General RN Documented Start/Stop Times: Operation Date: 05/15/24 07:30 Case Time Into Pre-Op 05/15/24 05:45 Out of Pre-Op 05/15/24 07:29 Anesthesia Start 05/15/24 07:32 Into Room 05/15/24 07:32 Procedure Start 05/15/24 08:06 Procedure Start Time: 08:06 Procedure Stop Time: 09:20 Select all DRAINS/GRAFTS/IMPLANTS that apply: None Special Medications: none Estimated Blood Loss: 30 Fluids Replaced: 1400 crystalloid Specimen collected: Yes Description of specimen(s) removed: uterus, cervix, bilateral fallopian tubes Description of surgery: The patient was taken to the operating room where she was prepped and draped in the dorsal lithotomy position. Her arms were tucked to the side and padded and her legs were placed in the yellowfin stirrups. Care was taken to ensure that she was placed in a neurologically safe and neutral position. A weighted speculum was placed in the vagina and the anterior lip of the cervix was grasped with a single-tooth tenaculum. The cervix sounded to 8 centimeters. 2-0 Vicryl sutures were secured to the cervix at 3 and 9:00. The UTerine chief green officer was placed into the cervix and the balloon inflated. The stay sutures were placed through the cup and secured down to the cervix. Once the V-Care was secured to the cervix the Rolon catheter was placed to straight drain. Attention was turned to the abdominal portion of the case. Before skin incisions were made they were infiltrated with 0.5% Marcaine solution for local anesthetic. A 5 mm intraumbilical incision was made and while tenting the anterior abdominal wall up with towel clamps a 5 mm blade less trocar and sleeve were advanced directly into the peritoneal cavity. Peritoneal placement was confirmed with the laparoscope the pneumoperitoneum was created, and the underlying abdominal contents were intact. The patient was placed in Trendelenburg and the above findings were noted. Right and left lateral 5 mm trochars were placed under direct visualization without difficulty. The antimesenteric portion of the tube was clamped sealed and transected serially on both sides with the LigaSure device. The round ligaments were clamped sealed and transected and a window was made in the peritoneum. The utero-ovarian ligaments were then clamped sealed and transected with the LigaSure device and the pedicles were hemostatic The bladder flap was dissected down with the LigaSure device and blunt dissection and the uterine arteries were then skeletonized. The uterine arteries were clamped sealed and transected on both sides with the LigaSure device. Then along the cardinal ligament uterine arteries adjacent to the cervix were clamped sealed and transected with the LigaSure device to move them away from the vaginal cuff angle. At this point the pedicles were all examined and found to be hemostatic. The bladder flap was rechecked and found to be adequately down. The monopolar tip of the LigaSure device was then used to enter the anterior vagina. The vaginal manipulator cup was noted in the vaginal colpotomy incision was made circumferentially around the cup. When the 3 and 9:00 positions of the cervicovaginal junction were reached these were clamped sealed and transected with the LigaSure device to secure any small remaining vessels. At this point the pedicles were hemostatic from above and attention was turned to the vaginal portion of the case again. The uterus was brought intact out through the vaginal colpotomy incision along with the tubes The posterior peritoneum was identified intact to the posterior vaginal cuff wall. No active bleeding from the pedicles was noted. A modified Mejia's culdoplasty was performed with 3-0 PDS suture. I had entered the peritoneum through the posterior vaginal wall in the midline reefed across the posterior peritoneum to the right uterosacral back across to the left and back out through the midline. Vaginal angle sutures were placed on both sides with 0 Vicryl sutures and care was taken to ensure that the uterosacral ligament was secured into this stitch. The remainder the vagina was then closed horizontally with interrupted 0 Vicryl sutures. The cuff was hemostatic vaginally. The PDS suture was then tied down and excellent support was noted. The vaginal length was 10 cm. The Rolon catheter was removed and a cystoscopy was performed. The bladder appeared normal and was intact. Both ureteral orifices were noted and both ureteral jets were seen. The cystoscope was removed and the Rolon catheter was placed back to straight drain. A sponge stick was placed in the vagina to help place traction against the vaginal cuff and the pneumoperitoneum was re-created. The pedicles were reexamined and found to be hemostatic. The vaginal cuff was hemostatic. Some Celso was placed over the cuff and the pedicles and no active bleeding was noted through the Celso. The right and left lateral ports were taken out and the sites were hemostatic. The pneumoperitoneum was released and even under low pressure there was no bleeding of any of the pedicles are vaginal cuff. The umbilical port was removed. The umbilical skin incisions were closed with Monocryl suture and skin glue by Dr. Couch and the student. The vaginal instruments were removed by me and a vaginal sweep was completed by me. The surgery was performed by me with assistance other than the portions dictated as above. There were no qualified residents available for this procedure. All sponge lap and needle counts were correct and the patient was transferred to the recovery room in stable condition. Surgical Findings: Uterus with multiple fibroids, normal cervix and vagina. Normal tubes and ovaries Complications Complications: No Admit VTE Documentation VTE Present on Admission: No VTE Mechan Device Prophylaxis: [facility] [place]'s VTE Pharm Prophylaxis ordered?: No
--- NOTE | 2024-05-15 09:40 | PCM.POST.ANE ---
Anesthesia: Postop Eval I Current Vital Signs Temperature: 97.0 F Pulse Rate: 66 Blood Pressure: 95/60 Respiratory Rate: 16 Pulse Ox: 99 Oxygen Delivery Method: Room Air Assessment Airway patent: Yes Spontaneous unlabored respirations: Yes Mental status: Awake and Calm nausea: No Vomiting: No Anesthesia Complication: No Fluid Hydration Crystalloid volume administer (ml): 1,500 Total IV fluid infused: 1,500 Progress Note Anesthesia document: Postop Eval 1 completed: Yes
[2024-05-15] MEDS: oxyCODONE 5 MG Tablet PO (11:15)
--- NOTE | 2024-05-15 11:52 | POSTOPAN2_ITS ---
Anesthesia Postop Eval I Sum Postop Eval Completion status Anesthesia document: Postop Eval 1 completed: Yes Anesthesia Postop Eval I Summary Anesthesia Postop Eval I Summary: Anesthesia Postop Eval I: Assessment Summary Airway patent Yes 05/15/24 09:41 ASSET PROTECTION [email or web address] Spontaneous unlabored Yes 05/15/24 09:41 ASSET PROTECTION [email or web address] respirations Mental status Awake,Calm 05/15/24 09:41 ASSET PROTECTION [email or web address] nausea No 05/15/24 09:41 ASSET PROTECTION [email or web address] Vomiting No 05/15/24 09:41 ASSET [email or web address] [email or web address] Anesthesia Postop Eval I: Fluid Summary Crystalloid volume administer 1,500 05/15/24 09:41 ASSET PROTECTION [email or web address] (ml) Colloids volume administered ( ml) Blood Product volume administered (ml) Total IV fluid infused 1,500 05/15/24 09:41 ASSET PROTECTION [email or web address] Anesthesia Postop Eval I: Summary Notes Anesthesia Complication No 05/15/24 09:41 ASSET [email or web address] [email or web address] Anesthesia Complication Comment: Post-operative progress note Anesthesia: Postop Eval II Evaluation Mental status: Awake Pain Level: 1 nausea: No Vomiting: No Complications Anesthesia Complication: No
--- NOTE | 2024-05-15 11:52 | PCM.POSTANE2 ---
Anesthesia Postop Eval I Sum Postop Eval Completion status Anesthesia document: Postop Eval 1 completed: Yes Anesthesia Postop Eval I Summary Anesthesia Postop Eval I Summary: Anesthesia Postop Eval I: Assessment Summary Airway patent Yes 05/15/24 09:41 [email or web address] Spontaneous unlabored Yes 05/15/24 09:41 [email or web address] respirations Mental status Awake,Calm 05/15/24 09:41 [email or web address] nausea No 05/15/24 09:41 [email or web address] Vomiting No 05/15/24 09:41 [email or web address] Anesthesia Postop Eval I: Fluid Summary Crystalloid volume administer 1,500 05/15/24 09:41 [email or web address] (ml) Colloids volume administered ( ml) Blood Product volume administered (ml) Total IV fluid infused 1,500 05/15/24 09:41 [email or web address] Anesthesia Postop Eval I: Summary Notes Anesthesia Complication No 05/15/24 09:41 [email or web address] Anesthesia Complication Comment: Post-operative progress note Anesthesia: Postop Eval II Evaluation Mental status: Awake Pain Level: 1 nausea: No Vomiting: No Complications Anesthesia Complication: No
== END 2024-05-15 13:27 | disposition home or self-care (01) ==
LOC: SDC 05:30 → AC 05:31
PROVIDERS: Anesthesiology; PCP Internal Medicine; Referring Provider Obstetrics & Gynecology; Visit Provider Obstetrics & Gynecology
PROC: 0UT94ZZ Resection of Uterus, Percutaneous Endoscopic Approach (ICD-10-PCS; CPT 58552; principal; 2024-05-15 07:10)
DX: D26.1 Other benign neoplasm of corpus uteri (principal); N80.03 Adenomyosis of the uterus; N94.6 Dysmenorrhea, unspecified; N93.9 Abnormal uterine and vaginal bleeding, unspecified; D25.1 Intramural leiomyoma of uterus; D25.0 Submucous leiomyoma of uterus; I10 Essential (primary) hypertension; K21.9 Gastro-esophageal reflux disease without esophagitis; Z79.899 Other long term (current) drug therapy; N72 Inflammatory disease of cervix uteri; N87.9 Dysplasia of cervix uteri, unspecified; N83.8 Other noninflammatory disorders of ovary, fallopian tube and broad ligament
CPT/HCPCS: 58552; 00840; 80048; 81025; 82962; 83735; 88307; J2405; J3475

== ENCOUNTER → 2025-01-25 | Outpatient (CLI) | payer OTHER, SELFPAY ==
[2025-01-25 10:29] LABS: Red Blood Cells-Urine 0 SEEN /hpf (0-5)
[2025-01-25 12:17] LABS: Hematocrit 39.5 % (37-47); Hemoglobin 13.3 g/dL (12.0-15.0); Immature Granulocytes Count 0.030 X10^3/uL (0.0-0.0); Mean Corp Hgb Conc 33.7 g/dL (32-36); Mean Corpuscular Volume 93.6 fL (81-99); Mean Platelet Vol. 10.5 fl (6.2-12.0); NRBC Flagged by Analyzer 0 % (0-5); Platelet Count 295 K/mm3 (150-450); RBC Distribution Width CV 12.5 % (11.6-14.6); RBC Distribution Width SD 43.1 fl (35.1-43.9); Red Blood Count 4.22 M/mm3 (4.2-5.4); White Blood Count 6.8 K/mm3 (4.4-11.0)
[2025-01-25 12:22] LABS: Color, Urine Yellow (Yellow); Glucose, Dipstick Normal (Normal); Ketone-Dipstick Negative (Negative); Leukocyte Esterase-Dipstick Negative /ul (Negative); Nitrite-Dipstick Negative (Negative); Occult Blood-Urine Negative /ul (Negative); Protein-Dipstick 30 mg/dl (Negative); Specific Gravity, Urine 1.025 (1.002-1.030); Urine Bilirubin Dipstick Negative (Negative)
[2025-01-25 12:30] LABS: Mucous, Urine 1+ /hpf (<or=2+); Squamous Epithelial Cells - UA 10-25 SEEN /hpf (5-10)
[2025-01-25 13:20] LABS: AST(SGOT) 18 U/L (<=31); Alanine Aminotransfer ALT/SGPT 15 U/L (<=34); Albumin, Serum 4.1 g/dL (3.5-5.0); Alkaline Phosphatase 89 U/L (35-104); Anion Gap 11 (5-15); BUN 13 mg/dL (4-19); BUN/Creat Ratio 18.7 RATIO (10-20); Calcium,Total 9.3 mg/dL (7.6-11.0); Carbon Dioxide 22.5 mmol/L (21.0-32.0); Chloride 101 mmol/L (98-108); Cholesterol 224 mg/dL (<=200); Globulin 3.3 g/dL (2.2-4.2); Glucose 99 mg/dL (70-99); Low Density Lipoprotein Calc. 141 mg/dL; Magnesium 2.0 mg/dL (1.5-2.2); Potassium 4.3 mmol/L (3.3-5.1); Triglycerides 101 mg/dL; Very Low Density Lipoprotein 20 mg/dL (5-40); cholesterol:hdl ratio screen 3.45
[2025-01-25 14:17] LABS: Creatinine, Urine (random) 212.00 mg/dL (28.00-217.00); Microalbumin,Random Urine 14.7 mg/L (<20 mg/L)
== END | disposition home or self-care (01) ==
LOC: CIMLAB 10:27
PROVIDERS: PCP Internal Medicine; Referring Provider Internal Medicine; Visit Provider Internal Medicine
DX: I10 Essential (primary) hypertension (principal); F41.9 Anxiety disorder, unspecified; G25.81 Restless legs syndrome; R70.0 Elevated erythrocyte sedimentation rate
CPT/HCPCS: 36415; 80053; 80061; 81001; 82043; 82570; 83735; 84443; 85025; 85652